=== PATIENT | female | born 1955 | race Caucasian/White ===

== ENCOUNTER 2017-02-21 19:16 | Emergency (ER) | payer OTHER ==
[~2017-02-21] VITALS: Ht 157.5 cm; Wt 47.2 kg
[~2017-02-21 19:16] MED LIST: ACET1TAB40 PO; AMOX1TAB67 PO; AUG875 PO; FLUT9.9S NASAL; PSEU120T11 PO; PSEU120T51 PO
[2017-02-21 19:28] VITALS: Ht 157.5 cm; Wt 47.2 kg
[2017-02-21] MEDS ORDERED: IBUP-1542 PO (20:00)
--- NOTE | 2017-02-21 20:10 | ERD ---
ER Documentation Chief Complaint Date/Time DATE: 02/21/17 TIME: 20:07 Chief Complaint WORSENED TOOHTACHE, RIGHT LOWER MOLAR. HPI Patient is a 61-year-old female with history of dental disease who presents with right mandibular dental pain. The patient says "they are broken and cracked". The symptoms started today with pain which is sharp in nature. She says "my insurance changed and I cannot get in to see a dentist for 1 week". She says that she tried Motrin and Tylenol. Upon review of old medical records this is the patient's fourth visit to our emergency department since 2016 but review of the emergency department information exchange system shows 10 separate visits to 4 separate emergency departments over the past 1 year for dental issues. ROS All systems reviewed and are negative except as per history of present illness. Medications Home Meds Active Scripts Ibuprofen* (Motrin*) 600 Mg Tab, 600 MG PO Q8, #30 TAB Prov:SCOTTIE JACOBO MD 02/21/17 Pseudoephedrine Hcl (Sudafe 12-Hour) 120 Mg Tablet.er, 120 MG PO BID Y for CONGESTION, #14 TAB.SA Prov:GAMALIEL SHARMA DO 04/20/16 Fluticasone Propionate (Flonase Allergy Relief) 9.9 Ml [place].susp, 1 SPRAY NASAL DAILY, #1 BOTTLE TO EACH NOSTRIL [facility]16 Pseudoephedrine Hcl (Sudafed 12 Hour) 120 Mg Tablet.sa, 120 MG PO BID, #14 Prov:EDITH,[facility] 04/20/16 Fluticasone Propionate (Flonase Allergy Relief) 9.9 Ml [place].susp, 1 SPRAY NASAL DAILY, #1 BOTTLE TO EACH NOSTRIL Prov:GAMALIEL SHARMA DO 04/20/16 Acetaminophen-Codeine* (Acetaminophen-Cod #3*) 300-30 Mg Tab, 1 TAB PO Q4H Y for PAIN, #10 TAB Prov:ENOCH OLIVAREZ NP 01/13/16 Amoxicillin-Clavulanate K* (Augmentin*) 500 Mg Tab, 875 MG PO BID, #19 TAB Prov:ENOCH OLIVAREZ NP 01/13/16 Amoxicillin-Clavulanate K* (Augmentin*) 875 Mg Tab, 875 MG PO BID for 10 Days, TAB Prov:JANETH GAN 11/14/15 Allergies Allergies: Coded Allergies: No Known Allergy (Unverified , 02/21/17) PMhx/Soc History of Surgery: Yes (left oopherectomy, mult c/s) Anesthesia Reaction: No Hx Neurological Disorder: No Hx Respiratory Disorders: No Hx Cardiac Disorders: No Hx Psychiatric Problems: No Hx Miscellaneous Medical Probl: No Hx Alcohol Use: No Hx Substance Use: No Hx Tobacco Use: No Smoking Status: Never smoker FmHx Family History: diabetes Physical Exam Vitals Vital Signs Date Time Temp Pulse Resp B/P Pulse Ox O2 Delivery O2 Flow Rate FiO2 02/21/17 19:28 97.2 100 18 117/68 96 Physical Exam Const: Mild distress secondary to dental pain Head: Atraumatic Eyes: Normal Conjunctiva ENT: Poor dentition diffusely but the patient does have significant dental decay in the right mandibular molars where she complains of pain Neck: Full range of motion..~ No meningismus. Resp: Clear to auscultation bilaterally Cardio: Regular rate and rhythm, no murmurs Abd: Soft, non tender, non distended. Normal bowel sounds Skin: No petechiae or rashes Back: No midline or flank tenderness Ext: No cyanosis, or edema Neur: Awake and alert Psych: Normal Mood and Affect Procedures/MDM Patient is a 61-year-old female presents with dental decay and dental pain. The patient will be given a prescription for ibuprofen. I told her I would not give her narcotic medicines because I am concerned about possible pain seeking behavior given the fact that she has 10 visits to 4 separate emergency departments. I told her the most important thing is that she follows up with a dentist to get her teeth pulled. The patient will be given information for the [facility] dentist. Departure Diagnosis: Primary Impression: Acute pain of mouth Additional Impression: Dental caries Condition: Fair Patient Instructions: Dental Cavity Referrals: [facility] ([facility] walk in clinic) Additional Instructions: SPECIALIST: YOU HAVE A MEDICAL CONDITION WHICH REQUIRES YOU TO SEE A SPECIALIST WITHIN THE NEXT 1-2 DAYS. PLEASE FOLLOW UP WITH YOUR PRIMARY PHYSICIAN FOR REFFERAL.IF YOU DO NOT HAVE A PRIMARY CARE PHYSICIAN AND/OR YOU CAN NOT AFFORD TO SEE A PHYSICIAN THE FOLLOWING RESOURCES HAVE BEEN SUPPLIED TO YOU. IT IS YOUR RESPONSIBILITY TO BE SEEN BY THE SPECIALIST SCOTTIE JACOBO MD February 21, 2017 20:10
== END 2017-02-21 20:08 | disposition home or self-care (01) ==
LOC: E/R 19:16
DX: K13.79 Other lesions of oral mucosa (principal); K02.9 Dental caries, unspecified
CPT/HCPCS: 99283